=== PATIENT | male | born 1975 | race Caucasian/White ===

== ENCOUNTER 2021-02-06 10:47 | Inpatient (IN) | payer BC, SELFPAY ==
[~2021-02-06] VITALS: Ht 162.6 cm; Wt 49.9 kg
[2021-02-06 10:54] VITALS: BP_SYST 106
[2021-02-06] MEDS ORDERED: KETAMINE 30 MG/3 ML SYRINGE IVP ONE (11:30)
[2021-02-06] MEDS ORDERED: fentaNYL CITRATE/PF 100 MCG/2 ML AMP IVP ONE (11:30)
[2021-02-06 11:44] LABS: BASOPHILS % (AUTO) 0.3 % (0.0-2.0); EOSINOPHILS % (AUTO) 1.7 % (0.0-4.0); HEMATOCRIT 26.6 % (36-54); HEMOGLOBIN 9.3 g/dL (14.0-18.0); LYMPHOCYTES # (AUTO) 0.2 K/uL (1.0-5.5); LYMPHOCYTES % (AUTO) 7.1 % (20.5-51.5); MEAN CORPUSCULAR HEMOGLOBIN 32 pg (27-31); MEAN CORPUSCULAR HGB CONC 35 % (32-36); MEAN CORPUSCULAR VOLUME 92 fL (79.0-98.0); MONOCYTES # (AUTO) 0.5 K/uL (0.0-1.0); MONOCYTES % (AUTO) 23.3 % (1.7-9.3); NEUTROPHILS # (AUTO) 1.5 K/uL (1.8-7.7); NEUTROPHILS % (AUTO) 67.6 % (40.0-70.0); PLATELET COUNT (AUTO) 143 K/uL (130-430); RED CELL DISTRIBUTION WIDTH 19.2 % (9.0-15.0); WHITE BLOOD COUNT (AUTO) 2.2 K/uL (4.8-10.8)
[2021-02-06 11:54] LABS: CALCIUM 8.7 mg/dL (8.4-11.0); CREATININE 0.86 mg/dL (0.55-1.30)
[2021-02-06 12:00] LABS: ALBUMIN 3.2 g/dL (3.4-4.8); TOTAL BILIRUBIN 0.3 mg/dL (0.0-1.0)
[2021-02-06 12:03] LABS: POTASSIUM 2.2 mmol/L (3.5-5.1)
[2021-02-06] MEDS ORDERED: POTASSIUM CHLORIDE 20 MEQ/PKT PACKET PO ONE (12:15)
[2021-02-06] MEDS ORDERED: KETAMINE 30 MG/3 ML SYRINGE 15 MG in NS 100 ML IV ONE (12:15)
[2021-02-06] MEDS ORDERED: KCL 40mEq in D5/0.45NS 1000 mL 1,000 ML IV ONE (12:15)
[2021-02-06] MEDS ORDERED: ACETAMINOPHEN 325 MG TABLET PO PRN (12:45)
[2021-02-06] MEDS ORDERED: MUPIROCIN 2% TOPICAL OINTMENT 22 GM NS PRN ×2 (12:45→15:30)
[2021-02-06] MEDS ORDERED: NACL 0.9% 1,000 ML IV ONE (12:45)
[2021-02-06] MEDS ORDERED: ZOLPIDEM TARTRATE 5 MG TABLET PO PRN (12:45)
[2021-02-06] MEDS ORDERED: MAGNESIUM SULFATE 50 ML IV PRN (12:45)
[2021-02-06] MEDS ORDERED: MORPHINE 2 MG/ML INJ. SYRINGE IVP PRN (12:45)
[2021-02-06] MEDS ORDERED: MAGN400T10 PO (12:48)
[2021-02-06] MEDS ORDERED: ONDA4TAB11 PO (13:01)
[2021-02-06] MEDS ORDERED: PANT40TA45 PO (13:01)
[2021-02-06] MEDS ORDERED: PERC10 PO (13:01)
[2021-02-06] MEDS ORDERED: PROC5TAB12 PO (13:01)
[2021-02-06] MEDS ORDERED: CHOL50006 PO (13:01)
[2021-02-06] MEDS ORDERED: ACYC400T5 PO (13:01)
[2021-02-06] MEDS ORDERED: APIX5TAB PO (13:01)
[2021-02-06] MEDS ORDERED: BICT1TAB PO (13:01)
[2021-02-06] MEDS ORDERED: SULF1TAB48 PO (13:01)
[2021-02-06] MEDS ORDERED: TRAZ50TA54 PO (13:01)
[2021-02-06] MEDS ORDERED: MIDO5TAB4 PO (14:32)
[2021-02-06 17:41] VITALS: BP_SYST 110
[2021-02-06] MEDS ORDERED: FLU VACC QS2021-22(6MOS UP)/PF 0.5 ML/SYR SYRINGE I.M. PRN (18:00)
[2021-02-06] MEDS ORDERED: DEXTROSE 50% JECT 50 ML DISP.SYRIN IVP PRN (18:00)
[2021-02-06] MEDS: MORPHINE 2 MG/ML INJ. SYRINGE IVP PRN (18:04)
[2021-02-06] MEDS ORDERED: *TPN PER PHARMACY XX PRN (21:00)
[2021-02-06] MEDS: LORazepam 2 MG/ML VIAL IVP PRN (22:44)
[2021-02-06 22:57] LABS: CALCIUM 7.5 mg/dL (8.4-11.0); CREATININE 0.65 mg/dL (0.55-1.30)
[2021-02-06 23:06] LABS: POTASSIUM 2.8 mmol/L (3.5-5.1)
[2021-02-06] MEDS: POTASSIUM CHLORIDE 20 MEQ TAB.PRT.SR PO PRN (23:53)
[2021-02-07] MEDS: D5/0.45 NS 1,000 ML IV SCH ×2 (02:00→17:31)
[2021-02-07] MEDS: LORazepam 2 MG/ML VIAL IVP PRN ×3 (04:23→21:40)
[2021-02-07 06:38] LABS: HEMATOCRIT 22.4 % (36-54); HEMOGLOBIN 7.5 g/dL (14.0-18.0); MEAN CORPUSCULAR HEMOGLOBIN 31 pg (27-31); MEAN CORPUSCULAR HGB CONC 34 % (32-36); MEAN CORPUSCULAR VOLUME 93 fL (79.0-98.0); PLATELET COUNT (AUTO) 109 K/uL (130-430); RED BLOOD CELL COUNT(AUTO) 2.41 MIL/uL (4.2-6.2); RED CELL DISTRIBUTION WIDTH 19.6 % (9.0-15.0)
[2021-02-07 06:41] LABS: CALCIUM 7.7 mg/dL (8.4-11.0); CREATININE 0.65 mg/dL (0.55-1.30); POTASSIUM 3.1 mmol/L (3.5-5.1)
[2021-02-07 08:00] VITALS: BP_SYST 116
[2021-02-07] MEDS ORDERED: MAGNESIUM SULFATE 50 ML IV ONE (08:15)
[2021-02-07 08:38] LABS: WHITE BLOOD COUNT (AUTO) 1.4 K/uL (4.8-10.8)
[2021-02-07] MEDS: POTASSIUM CHLORIDE 20 MEQ/PKT PACKET PO PRN (08:40)
[2021-02-07] MEDS: SULFAMETHOXAZOLE/TRIMETHOPR DS 1 TABLET PO SCH ×2 (09:24→20:40)
[2021-02-07] MEDS: MAGNESIUM OXIDE 400 MG TABLET PO SCH ×2 (09:24→20:40)
[2021-02-07] MEDS: CHOLECALCIFEROL (VITAMIN D3) 5,000 UNIT TABLET PO SCH (09:24)
[2021-02-07] MEDS: MIDODRINE HCL 5 MG TABLET (PROAMATINE) PO SCH ×3 (09:25→20:40)
[2021-02-07] MEDS: ACYCLOVIR 400 MG TABLET PO SCH (09:25)
[2021-02-07] MEDS: APIXABAN 2.5 MG TABLET PO SCH ×2 (09:26→20:41)
[2021-02-07 11:15] LABS: PHOSPHORUS 2.6 mg/dL (2.7-4.5)
[2021-02-07 11:27] LABS: BASOPHILS % (MANUAL) 0 % (0-2); EOSINOPHILS % (MANUAL) 2 % (0-7); LYMPHOCYTES % (MANUAL) 36 % (20-46); MONOCYTES % (MANUAL) 6 % (0-11)
[2021-02-07 12:00] VITALS: BP_SYST 114
[2021-02-07 16:00] VITALS: BP_SYST 111
[2021-02-07] MEDS ORDERED: TBO-FILGRASTIM 480 MCG/0.8 ML SYRINGE SUBCUT SCH (17:00)
[2021-02-07] MEDS: ONDANSETRON HCL 4 MG/2 ML VIAL IVP PRN (17:56)
[2021-02-07 20:00] VITALS: BP_SYST 115
[2021-02-07] MEDS: FAT EMULSIONS 250 ML IV SCH (20:20)
[2021-02-07] MEDS: traZODone HCL 50 MG TABLET (DESYREL) PO SCH (20:40)
[2021-02-07] MEDS ORDERED: TPN CENTRAL 0.0001 ML, SODIUM CHLORIDE 40 MEQ, POTASSIUM CHLORIDE 20 MEQ, K PHOS 9 MM, ... IV SCH ×9 (21:00)
[2021-02-07 22:32] LABS: BILIRUBIN,URINE NEGATIVE (NEGATIVE); BLOOD, URINE NEGATIVE (NEGATIVE); CLARITY/URINE CLEAR (CLEAR); COLOR,URINE YELLOW (YELLOW); GLUCOSE,URINE NEGATIVE (NEGATIVE); KETONES,URINE NEGATIVE (NEGATIVE); LEUKOCYTE ESTERASE ,URINE NEGATIVE (NEGATIVE); NITRITE, URINE NEGATIVE (NEGATIVE); PH,URINE 8.5 (5.0-8.0); PROTEIN URINE TRACE (NEGATIVE); UROBILINOGEN,URINE 0.2 (0.2-1.0)
[2021-02-07 22:43] LABS: BARBITURATE, URINE NEGATIVE (NEG <=200)
[2021-02-07 22:44] LABS: BENZODIAZEPINE, URINE POSITIVE (NEG <=150); CANNABINOID, URINE POSITIVE (NEG <=50); COCAINE, URINE NEGATIVE (NEG <=150); METHAMPHETAMINES SCREEN,URINE NEGATIVE (NEG <=500); OPIATE, URINE POSITIVE (NEG <=100); PHENCYCLIDINE SCREEN,URINE NEGATIVE (NEG <=25); UR TRICYCLIC ANTIDEPRESSANTS NEGATIVE (NEG <=300); URINE AMPHETAMINE NEGATIVE (NEG <=500); URINE METHADONE NEGATIVE (NEG <=200); URINE OXYCODONE SCREEN NEGATIVE (NEG <=100); URINE PROPOXYPHENE SCREEN NEGATIVE (NEG <=300)
[2021-02-08] VITALS: BP_SYST 112
[2021-02-08] MEDS: MORPHINE 2 MG/ML INJ. SYRINGE IVP PRN ×2 (03:16→18:50)
[2021-02-08 06:44] LABS: BASOPHILS % (AUTO) 0.3 % (0.0-2.0); EOSINOPHILS % (AUTO) 0.5 % (0.0-4.0); HEMATOCRIT 23.5 % (36-54); LYMPHOCYTES # (AUTO) 0.2 K/uL (1.0-5.5); LYMPHOCYTES % (AUTO) 5.1 % (20.5-51.5); MEAN CORPUSCULAR HEMOGLOBIN 31 pg (27-31); MEAN CORPUSCULAR HGB CONC 34 % (32-36); MEAN CORPUSCULAR VOLUME 92 fL (79.0-98.0); MONOCYTES # (AUTO) 0.2 K/uL (0.0-1.0); MONOCYTES % (AUTO) 5.8 % (1.7-9.3); NEUTROPHILS # (AUTO) 3.5 K/uL (1.8-7.7); NEUTROPHILS % (AUTO) 88.3 % (40.0-70.0); PLATELET COUNT (AUTO) 90 K/uL (130-430); RED BLOOD CELL COUNT(AUTO) 2.55 MIL/uL (4.2-6.2); RED CELL DISTRIBUTION WIDTH 19.3 % (9.0-15.0); RETICULOCYTE COUNT 1.9 % (0.5-1.5)
[2021-02-08 06:45] LABS: PROTHROMBIN TIME 10.3 SECS (9.5-12.5)
[2021-02-08 08:00] VITALS: BP_SYST 96
[2021-02-08] MEDS: CHOLECALCIFEROL (VITAMIN D3) 5,000 UNIT TABLET PO SCH (08:12)
[2021-02-08] MEDS: APIXABAN 2.5 MG TABLET PO SCH ×2 (08:12→21:06)
[2021-02-08] MEDS: ACYCLOVIR 400 MG TABLET PO SCH (08:13)
[2021-02-08] MEDS: DOCUSATE SODIUM 100 MG CAPSULE PO PRN (08:13)
[2021-02-08] MEDS: SULFAMETHOXAZOLE/TRIMETHOPR DS 1 TABLET PO SCH ×2 (08:13→21:03)
[2021-02-08] MEDS: MAGNESIUM OXIDE 400 MG TABLET PO SCH ×2 (08:13→21:03)
[2021-02-08 08:20] LABS: TOTAL IRON BIND. CAPACITY 242 ug/dL (250-450)
[2021-02-08] MEDS: MIDODRINE HCL 5 MG TABLET (PROAMATINE) PO SCH ×3 (08:21→21:06)
[2021-02-08] MEDS: D5/0.45 NS 1,000 ML IV SCH ×2 (08:30→21:30)
[2021-02-08] MEDS ORDERED: POTA20TA83 PO (08:50)
[2021-02-08 08:55] LABS: CALCIUM 7.2 mg/dL (8.4-11.0); CREATININE 0.64 mg/dL (0.55-1.30); POTASSIUM 3.2 mmol/L (3.5-5.1)
[2021-02-08] MEDS: POTASSIUM CHLORIDE 20 MEQ TAB.PRT.SR PO PRN (13:03)
[2021-02-08 15:11] VITALS: BP_SYST 94
[2021-02-08 16:00] VITALS: BP_SYST 102
[2021-02-08 20:19] VITALS: BP_SYST 108
[2021-02-08] MEDS ORDERED: [UNRECOGNIZED DRUG - OTHER] IV SCH ×10 (21:00)
[2021-02-08] MEDS ORDERED: TPN CENTRAL IV SCH ×10 (21:00)
[2021-02-08] MEDS ORDERED: POTASSIUM ACETATE IV SCH ×10 (21:00)
[2021-02-08] MEDS ORDERED: SODIUM CHLORIDE IV SCH ×10 (21:00)
[2021-02-08] MEDS: traZODone HCL 50 MG TABLET (DESYREL) PO SCH (21:03)
[2021-02-08] MEDS: FAT EMULSIONS 250 ML IV SCH (21:30)
[2021-02-08] MEDS: LORazepam 2 MG/ML VIAL IVP PRN (22:42)
[2021-02-09] VITALS (8 sets, daily range): BP systolic 93–119
[2021-02-09] MEDS: MORPHINE 2 MG/ML INJ. SYRINGE IVP PRN ×2 (00:26→13:01)
[2021-02-09] MEDS: LORazepam 2 MG/ML VIAL IVP PRN ×3 (04:07→21:20)
[2021-02-09 07:07] LABS: FOLATE (FOLIC ACID) 7.3 ng/mL (>3.0)
[2021-02-09 07:30] LABS: BASOPHILS % (AUTO) 0.6 % (0.0-2.0); EOSINOPHILS % (AUTO) 1.1 % (0.0-4.0); HEMATOCRIT 25.8 % (36-54); HEMOGLOBIN 8.8 g/dL (14.0-18.0); LYMPHOCYTES # (AUTO) 0.3 K/uL (1.0-5.5); MEAN CORPUSCULAR HEMOGLOBIN 31 pg (27-31); MEAN CORPUSCULAR HGB CONC 34 % (32-36); MEAN CORPUSCULAR VOLUME 92 fL (79.0-98.0); MONOCYTES # (AUTO) 0.3 K/uL (0.0-1.0); MONOCYTES % (AUTO) 9.5 % (1.7-9.3); NEUTROPHILS # (AUTO) 2.3 K/uL (1.8-7.7); NEUTROPHILS % (AUTO) 79.8 % (40.0-70.0); PLATELET COUNT (AUTO) 66 K/uL (130-430); RED CELL DISTRIBUTION WIDTH 19.6 % (9.0-15.0); WHITE BLOOD COUNT (AUTO) 2.9 K/uL (4.8-10.8)
[2021-02-09 08:02] LABS: ALBUMIN 2.5 g/dL (3.4-4.8); CALCIUM 7.9 mg/dL (8.4-11.0); CREATININE 0.63 mg/dL (0.55-1.30); PHOSPHORUS 3.3 mg/dL (2.7-4.5); POTASSIUM 3.2 mmol/L (3.5-5.1); TOTAL BILIRUBIN 0.1 mg/dL (0.0-1.0)
[2021-02-09 08:06] LABS: HEPATITIS B CORE AB, IgM Negative (Negative); HEPATITIS B SURFACE AG Negative (Negative); HEPATITIS C VIRUS AB <0.1 s/co ratio (0.0-0.9)
[2021-02-09] MEDS: APIXABAN 2.5 MG TABLET PO SCH ×2 (09:00→21:11)
[2021-02-09] MEDS: DOCUSATE SODIUM 100 MG CAPSULE PO PRN (10:44)
[2021-02-09] MEDS: ACYCLOVIR 400 MG TABLET PO SCH (10:44)
[2021-02-09] MEDS: MIDODRINE HCL 5 MG TABLET (PROAMATINE) PO SCH ×3 (10:44→21:10)
[2021-02-09] MEDS: CHOLECALCIFEROL (VITAMIN D3) 5,000 UNIT TABLET PO SCH (10:45)
[2021-02-09] MEDS: MAGNESIUM OXIDE 400 MG TABLET PO SCH ×2 (10:45→21:10)
[2021-02-09] MEDS: SULFAMETHOXAZOLE/TRIMETHOPR DS 1 TABLET PO SCH ×2 (10:45→21:10)
[2021-02-09] MEDS: POTASSIUM CHLORIDE 20 MEQ/PKT PACKET PO PRN (11:00)
[2021-02-09] MEDS: D5/0.45 NS 1,000 ML IV SCH (11:12)
[2021-02-09 14:53] LABS: FERRITIN 1886 ng/mL (30-400)
[2021-02-09] MEDS: ONDANSETRON HCL 4 MG/2 ML VIAL IVP PRN (18:03)
[2021-02-09] MEDS: INSULIN REGULAR, HUMAN 100 UNITS/ML, 10 ML VIAL (humuLIN R) SUBCUT PRN (18:37)
[2021-02-09] MEDS ORDERED: TPN CENTRAL IV SCH ×10 (21:00)
[2021-02-09] MEDS ORDERED: [UNRECOGNIZED DRUG - OTHER] IV SCH ×10 (21:00)
[2021-02-09] MEDS ORDERED: SODIUM CHLORIDE IV SCH ×10 (21:00)
[2021-02-09] MEDS ORDERED: POTASSIUM ACETATE IV SCH ×10 (21:00)
[2021-02-09] MEDS: traZODone HCL 50 MG TABLET (DESYREL) PO SCH (21:10)
[2021-02-09] MEDS: FAT EMULSIONS 250 ML IV SCH (21:16)
[2021-02-10] VITALS: BP_SYST 106
[2021-02-10] MEDS: D5/0.45 NS 1,000 ML IV SCH (00:17)
[2021-02-10] MEDS: MORPHINE 2 MG/ML INJ. SYRINGE IVP PRN (00:54)
[2021-02-10 08:00] VITALS: BP_SYST 98
[2021-02-10] MEDS ORDERED: ALPR0.5T PO (08:03)
[2021-02-10 08:50] LABS: BASOPHILS % (AUTO) 0.9 % (0.0-2.0); EOSINOPHILS # (AUTO) 0.1 K/uL (0.0-0.4); EOSINOPHILS % (AUTO) 4.9 % (0.0-4.0); HEMATOCRIT 23.7 % (36-54); HEMOGLOBIN 8.1 g/dL (14.0-18.0); LYMPHOCYTES # (AUTO) 0.1 K/uL (1.0-5.5); LYMPHOCYTES % (AUTO) 8.4 % (20.5-51.5); MEAN CORPUSCULAR HEMOGLOBIN 31 pg (27-31); MEAN CORPUSCULAR HGB CONC 34 % (32-36); MEAN CORPUSCULAR VOLUME 92 fL (79.0-98.0); MONOCYTES # (AUTO) 0.3 K/uL (0.0-1.0); NEUTROPHILS # (AUTO) 1.2 K/uL (1.8-7.7); NEUTROPHILS % (AUTO) 70.8 % (40.0-70.0); PLATELET COUNT (AUTO) 66 K/uL (130-430); RED BLOOD CELL COUNT(AUTO) 2.58 MIL/uL (4.2-6.2); RED CELL DISTRIBUTION WIDTH 19.5 % (9.0-15.0)
[2021-02-10 08:57] LABS: WHITE BLOOD COUNT (AUTO) 1.8 K/uL (4.8-10.8)
[2021-02-10 09:33] LABS: ALBUMIN 2.4 g/dL (3.4-4.8); CALCIUM 7.6 mg/dL (8.4-11.0); CREATININE 0.66 mg/dL (0.55-1.30); PHOSPHORUS 3.5 mg/dL (2.7-4.5); POTASSIUM 3.5 mmol/L (3.5-5.1); TOTAL BILIRUBIN 0.1 mg/dL (0.0-1.0)
[2021-02-10] MEDS: CHOLECALCIFEROL (VITAMIN D3) 5,000 UNIT TABLET PO SCH (09:47)
[2021-02-10] MEDS: DOCUSATE SODIUM 100 MG CAPSULE PO PRN (09:47)
[2021-02-10] MEDS: MAGNESIUM OXIDE 400 MG TABLET PO SCH (09:47)
[2021-02-10] MEDS: ACYCLOVIR 400 MG TABLET PO SCH (09:47)
[2021-02-10] MEDS: APIXABAN 2.5 MG TABLET PO SCH (09:49)
[2021-02-10] MEDS: SULFAMETHOXAZOLE/TRIMETHOPR DS 1 TABLET PO SCH (09:57)
[2021-02-10] MEDS: MIDODRINE HCL 5 MG TABLET (PROAMATINE) PO SCH ×2 (09:57→15:39)
[2021-02-10 12:00] VITALS: BP_SYST 102
[2021-02-10] MEDS: INSULIN REGULAR, HUMAN 100 UNITS/ML, 10 ML VIAL (humuLIN R) SUBCUT PRN (12:35)
[2021-02-10 16:00] VITALS: BP_SYST 106
[2021-02-10] MEDS ORDERED: TBO-FILGRASTIM 480 MCG/0.8 ML SYRINGE SUBCUT SCH (17:00)
[2021-02-10] MEDS ORDERED: POTASSIUM ACETATE IV SCH ×10 (21:00)
[2021-02-10] MEDS ORDERED: SODIUM CHLORIDE IV SCH ×10 (21:00)
[2021-02-10] MEDS ORDERED: TPN CENTRAL IV SCH ×10 (21:00)
[2021-02-10] MEDS ORDERED: [UNRECOGNIZED DRUG - OTHER] IV SCH ×10 (21:00)
== END 2021-02-10 17:30 | disposition home health service (06) | DRG 641 ==
LOC: SED 10:47 → STU 12:35
PROVIDERS: ADMIT General Practice; ATTEND General Practice
DX: E87.6 Hypokalemia (principal); D61.818 Other pancytopenia; E44.1 Mild protein-calorie malnutrition; Z68.1 Body mass index [BMI] 19.9 or less, adult; C85.80 Other specified types of non-Hodgkin lymphoma, unspecified site; R55 Syncope and collapse; G89.4 Chronic pain syndrome; D63.8 Anemia in other chronic diseases classified elsewhere; F41.0 Panic disorder [episodic paroxysmal anxiety]; Z20.822 Contact with and (suspected) exposure to COVID-19; R74.01 Elevation of levels of liver transaminase levels; E86.0 Dehydration; Z92.21 Personal history of antineoplastic chemotherapy; Z92.3 Personal history of irradiation
CPT/HCPCS: 36415; 70450-TC; 71045; 76376; 80048; 80053; 80307; 81003; 82272; 82607; 82728; 82746; 82962; 83036; 83540; 83550; 83735; 83880; 84100; 84478; 84484; 85007; 85025; 85027; 85044; 85610-TC; 85730-TC; 86705; 86708; 86803; 87081; 87340; 93005; 93880; 96361; 96365; 96375; 97163-GP; 99291; G0378; J0610; J1447; J1815; J2060; J2270; J2405; J3010; J3475; J3480; J7131